=== PATIENT | male | born 1965 | race Caucasian/White ===

== ENCOUNTER 2017-04-30 17:36 | Observation (INO) | payer BC ==
[2017-04-30] MEDS ORDERED: Sodium Chloride 0.9% 2.5 ML Syringe FLUSH PRN (17:48)
[2017-04-30] MEDS ORDERED: Ketorolac 30 MG/ML SDV IVPUSH ONE (17:48)
[2017-04-30] MEDS ORDERED: Sodium Chloride 0.9% 10 ML Syringe FLUSH PRN (17:48)
--- NOTE | 2017-04-30 18:06 | EDM.PDOC ---
ED HPI GENERAL MEDICAL PROBLEM - General Chief Complaint: Upper Extremity Injury/Pain Stated Complaint: PAIN IN SHOULDER Time Seen by Provider: 04/30/17 18:00 Source of Information: Reports: Patient History Limitations: Reports: No Limitations - History of Present Illness INITIAL COMMENTS - FREE TEXT/NARRATIVE: History of present illness: [51-year-old male comes in complaining of left-sided shoulder pain status post carrying in groceries. Patient indicates he is [id number] and he has point tenderness and it is more tender with increased range of motion and felt he needed to be evaluated.] Review of systems: As per history of present illness and below otherwise all systems reviewed and negative. Past medical history: As per history of present illness and as reviewed below otherwise noncontributory. Surgical history: As per history of present illness and as reviewed below otherwise noncontributory. Social history: No reported history of drug or alcohol abuse. Family history: As per history of present illness and as reviewed below otherwise noncontributory. Physical exam: HEENT: Atraumatic, normocephalic, pupils reactive, negative for conjunctival pallor or scleral icterus, mucous membranes moist, throat clear, neck supple, nontender, trachea midline. Lungs: Clear to auscultation, breath sounds equal bilaterally, chest nontender. Heart: S1S2, regular, negative for clicks, rubs, or JVD. Abdomen: Soft, nondistended, nontender. Negative for masses or hepatosplenomegaly. Negative for costovertebral tenderness. Pelvis: Stable nontender. Genitourinary: Deferred. Rectal: Deferred. Extremities: Atraumatic, negative for cords or calf pain. Neurovascular unremarkable. Left shoulder noted to be tender on palpation with a tight sternocleidomastoid as well as the levator scapula Neuro: Awake, alert, oriented. Cranial nerves II through XII unremarkable. Cerebellum unremarkable. Motor and sensory unremarkable throughout. Exam nonfocal. Diagnostics: [CBC, CMP, troponin, amylase, lipase, EKG, chest x-ray] Therapeutics: [IV ] Impression: [#1 musculoskeletal pain] Plan: [[id number] pain medicine follow-up with PCP] Definitive disposition and diagnosis as appropriate pending reevaluation and review of above. left shoulder Pain Score (Numeric/FACES): 5 - Related Data Allergies Allergy/AdvReac Type Severity Reaction Status Date / Time Penicillins Allergy Hives Verified 04/30/17 17:45 Home Meds: Home Meds Aspirin [Low Dose Aspirin EC] 81 mg PO DAILY 01/26/14 [History] Past Medical History - Past Health History Medical/Surgical History: Denies Medical/Surgical History HEENT History: Reports: None Cardiovascular History: Reports: None Respiratory History: Reports: None Gastrointestinal History: Reports: None Genitourinary History: Reports: None Musculoskeletal History: Reports: None Neurological History: Reports: None Psychiatric History: Reports: None Endocrine/Metabolic History: Reports: None Hematologic History: Reports: None Immunologic History: Reports: None Oncologic (Cancer) History: Reports: None Dermatologic History: Reports: None - Infectious Disease History Infectious Disease History: Reports: None - Past Surgical History Head Surgeries/Procedures: Reports: None Social & Family History - Family History Family Medical History: Noncontributory - Tobacco Use Smoking Status *Q: Never Smoker Second Hand Smoke Exposure: No - Caffeine Use Caffeine Use: Reports: Soda - Alcohol Use Days Per Week of Alcohol Use: 0 - Recreational Drug Use Recreational Drug Use: No Review of Systems - Review of Systems Review Of Systems: See Below (See history of present illness) ED EXAM, GENERAL - Physical Exam Exam: See Below (See history of present illness) Course - Vital Signs Last Recorded V/S: Last Vital Signs Temp 36.6 C 04/30/17 17:46 Pulse 96 04/30/17 17:46 Resp 18 04/30/17 17:46 BP 162/75 H 04/30/17 17:46 Pulse Ox 98 04/30/17 17:46 - Orders/Labs/Meds Orders: Active Orders 24 hr Category Date Time Status Cardiac Monitoring [RC] . DIRECTED Care 04/30/17 18:28 Active EKG Documentation Completion [RC] STAT Care 04/30/17 17:48 Active Chest 1V Frontal [CR] Stat Exams 04/30/17 17:48 Taken Sodium Chloride 0.9% [Saline Flush] Med 04/30/17 17:48 Active 10 ml FLUSH ASDIRECTED PRN Sodium Chloride 0.9% [Saline Flush] Med 04/30/17 17:48 Active 2.5 ml FLUSH ASDIRECTED PRN Saline Lock Insert [OM.PC] Stat Oth 04/30/17 17:48 Ordered Medication Orders Sodium Chloride (Saline Flush) 10 ml FLUSH ASDIRECTED PRN PRN Reason: Keep Vein Open Sodium Chloride (Saline Flush) 2.5 ml FLUSH ASDIRECTED PRN PRN Reason: Keep Vein Open Labs: Laboratory Tests 04/30/17 04/30/17 Range/Units 17:56 17:56 WBC 7.08 (4.0-11.0) K/uL RBC 5.25 (4.50-5.90) M/uL Hgb 15.4 (13.0-17.0) g/dL Hct 45.4 (38.0-50.0) % MCV 86.5 (80.0-98.0) fL MCH 29.3 (27.0-32.0) pg MCHC 33.9 (31.0-37.0) g/dL RDW Std Deviation 40.9 (28.0-62.0) fl RDW Coeff of Fidencio 13 (11.0-15.0) % Plt Count 242 (150-400) K/uL MPV 11.10 (7.40-12.00) fL Neut % (Auto) 71.4 (48.0-80.0) % Lymph % (Auto) 18.1 (16.0-40.0) % [place] % (Auto) 7.6 (0.0-15.0) % Eos % (Auto) 2.3 (0.0-7.0) % Baso % (Auto) 0.6 (0.0-1.5) % Neut # (Auto) 5.1 (1.4-5.7) K/uL Lymph # (Auto) 1.3 (0.6-2.4) K/uL [place] # (Auto) 0.5 (0.0-0.8) K/uL Eos # (Auto) 0.2 (0.0-0.7) K/uL Baso # (Auto) 0.0 (0.0-0.1) K/uL Nucleated RBC % 0.0 /100WBC Nucleated RBCs # 0 K/uL Sodium 139 (136-146) mmol/L Potassium 4.4 (3.5-5.1) mmol/L Chloride 106 (98-110) mmol/L Carbon Dioxide 23 (21-31) mmol/L BUN 13 (6.0-23.0) mg/dL Creatinine 0.9 (0.6-1.5) mg/dL Est Cr Clr Drug Dosing 109.74 mL/min Estimated GFR (MDRD) > 60.0 ml/min Glucose 146 H (60-110) mg/dL Calcium 9.2 (8.8-10.8) mg/dL Total Bilirubin 0.3 (0.1-1.5) mg/dL AST 21 (5-40) IU/L ALT 29 (8-54) IU/L Alkaline Phosphatase 87 (40-150) Troponin I < 0.10 (0.0-0.29) NG/ML Total Protein 7.6 (6.0-8.0) g/dL Albumin 3.8 (3.5-5.0) g/dL Globulin 3.8 H (2.0-3.5) g/dL Albumin/Globulin Ratio 1.0 L (1.3-2.8) Amylase 51 (10-90) U/L Lipase 20 (7-80) U/L Meds: Medications Generic Name Dose Route Start Last Admin Trade Name Freq PRN Reason Stop Dose Admin Sodium Chloride 10 ml 04/30/17 17:48 Saline Flush FLUSH ASDIRECTED PRN Keep Vein Open Sodium Chloride 2.5 ml 04/30/17 17:48 Saline Flush FLUSH ASDIRECTED PRN Keep Vein Open Discontinued Medications Generic Name Dose Route Start Last Admin Trade Name Freq PRN Reason Stop Dose Admin Ketorolac Tromethamine 30 mg 04/30/17 17:48 Toradol IVPUSH 04/30/17 17:49 ONETIME ONE Departure - Departure Time of Disposition: 18:56 Disposition: Home, Self-Care 01 Condition: Good Clinical Impression: Muscle ache - Discharge Information Referrals: PCP,None [Primary Care Provider] - Forms: ED Department Discharge Additional Instructions: The following information is given to patients seen in the emergency department who are being discharged to home. This information is to outline your options for follow-up care. We provide all patients seen in our emergency department with a follow-up referral. The need for follow-up, as well as the timing and circumstances, are variable depending upon the specifics of your emergency department visit. If you don't have a primary care physician on staff, we will provide you with a referral. We always advise you to contact your personal physician following an emergency department visit to inform them of the circumstance of the visit and for follow-up with them and/or the need for any referrals to a consulting specialist. The emergency department will also refer you to a specialist when appropriate. This referral assures that you have the opportunity for follow-up care with a specialist. All of these measure are taken in an effort to provide you with optimal care, which includes your follow-up. Under all circumstances we always encourage you to contact your private physician who remains a resource for coordinating your care. When calling for follow-up care, please make the office aware that this follow-up is from your recent emergency room visit. If for any reason you are refused follow-up, please contact the [facility] Emergency Department at and asked to speak to the emergency department charge nurse. Follow-up with Primary care 1-2 days If your muscle pain returns you may use [id number] pain medication such as ibuprofen or Tylenol and you may alternate ice and heat Return to ED as needed as discussed - My Orders Last 24 Hours: My Active Orders 04/30/17 17:48 EKG Documentation Completion [RC] STAT Chest 1V Frontal [CR] Stat Sodium Chloride 0.9% [Saline Flush] 10 ml FLUSH ASDIRECTED PRN Sodium Chloride 0.9% [Saline Flush] 2.5 ml FLUSH ASDIRECTED PRN Saline Lock Insert [OM.PC] Stat 04/30/17 18:28 Cardiac Monitoring [RC] . DIRECTED - Assessment/Plan Last 24 Hours: My Active Orders 04/30/17 17:48 EKG Documentation Completion [RC] STAT Chest 1V Frontal [CR] Stat Sodium Chloride 0.9% [Saline Flush] 10 ml FLUSH ASDIRECTED PRN Sodium Chloride 0.9% [Saline Flush] 2.5 ml FLUSH ASDIRECTED PRN Saline Lock Insert [OM.PC] Stat 04/30/17 18:28 Cardiac Monitoring [RC] . DIRECTED
[2017-04-30 18:26] LABS: CHLORIDE,CL 106 mmol/L (98-110); SODIUM,NA 139 mmol/L (136-146)
[2017-04-30] MEDS ORDERED: Aspirin 81 MG Tab.Chew PO ONE (20:39)
--- NOTE | 2017-04-30 20:54 | PCM.HP ---
H&P History of Present Illness - General Admit Problem/Dx: Admission Diagnosis/Problem Admission Diagnosis/Problem Chest pain - History of Present Illness Initial Comments - Free Text/Narative: 51 yo male who presents to the ED with six hour history of shoulder pain. Patient reports pain medial to the left scapula that radiates to the clavical area. He denies any shortness of breath, or cough. Moving his shoulder does not reproduce the pain. The pain resolved in the ED prior to receiving any medications. left shoulder Pain Score (Numeric/FACES): 0 - Related Data Allergies/Adverse Reactions: Allergies Allergy/AdvReac Type Severity Reaction Status Date / Time Penicillins Allergy Hives Verified 04/30/17 17:45 Home Medications: Home Meds Aspirin [Low Dose Aspirin EC] 81 mg PO DAILY 01/26/14 [History] Cetirizine [ZyrTEC] 10 mg PO DAILY 04/30/17 [History] Omeprazole 1 cap PO DAILY 04/30/17 [History] Past Medical History - Past Health History Medical/Surgical History: Denies Medical/Surgical History HEENT History: Reports: None Cardiovascular History: Reports: None Respiratory History: Reports: None Gastrointestinal History: Reports: None Genitourinary History: Reports: None Musculoskeletal History: Reports: None Neurological History: Reports: None Psychiatric History: Reports: None Endocrine/Metabolic History: Reports: None Hematologic History: Reports: None Immunologic History: Reports: None Oncologic (Cancer) History: Reports: None Dermatologic History: Reports: None - Infectious Disease History Infectious Disease History: Reports: None - Past Surgical History Head Surgeries/Procedures: Reports: None Respiratory Surgical History: Reports: None GI Surgical History: Reports: None Male Surgical History: Reports: None Endocrine Surgical History: Reports: None Social & Family History - Family History Family Medical History: Noncontributory HEENT: Reports: None Cardiac: Reports: Afib Respiratory: Reports: None GI: Reports: None : Reports: None OBGYN: Reports: None Musculoskeletal: Reports: None Neurological: Reports: None Psychiatric: Reports: None Endocrine/Metabolic: Reports: None Hematologic: Reports: None Immunologic: Reports: None Dermatologic: Reports: None Oncologic: Reports: Uterine - Tobacco Use Smoking Status *Q: Never Smoker Second Hand Smoke Exposure: No - Caffeine Use Caffeine Use: Reports: Coffee - Alcohol Use Days Per Week of Alcohol Use: 0 - Recreational Drug Use Recreational Drug Use: No H&P Review of Systems - Review of Systems: Review Of Systems: ROS reveals no pertinent complaints other than HPI. Exam - Exam Exam: See Below - Vital Signs Vital Signs: Last Vital Signs Temp 36.7 C 04/30/17 19:36 Pulse 93 04/30/17 19:36 Resp 20 04/30/17 19:36 BP 140/82 04/30/17 19:36 Pulse Ox 98 04/30/17 19:36 Weight: 139.2 kg - Exam General: Alert, Oriented HEENT: Mucosa Moist & [place] Neck: Supple Lungs: Clear to Auscultation, Normal Respiratory Effort Cardiovascular: Regular Rate, Regular Rhythm GI/Abdominal Exam: Soft, Non-Tender, No Distention Extremities: Normal Range of Motion (of shoulders) Skin: Warm, Dry, Intact - Patient Data Result Diagrams: 04/30/17 17:56 04/30/17 17:56 Imaging Impressions Last 24 hrs: CXR: no acute cardiopulmonary process EKG Normal sinus rhythm, rate 92, no st segment elevations or depressions, no T- wave changes *Q Meaningful Use (ADM) - VTE *Q VTE Criteria *Q: - Stroke *Q Stroke Criteria *Q: - AMI *Q AMI Criteria *Q: Problem List Initiated/Reviewed/Updated: Yes Orders Last 24hrs: Active Orders 24 hr Category Date Time Status Antiembolic Devices [RC] PER UNIT ROUTINE Care 04/30/17 20:48 Ordered Intake and Output [RC] QSHIFT Care 04/30/17 20:47 Ordered Oxygen Therapy [RC] PRN Care 04/30/17 20:47 Ordered Up ad Katelyn [RC] ASDIRECTED Care 04/30/17 20:47 Ordered VTE/DVT Education [RC] PER UNIT ROUTINE Care 04/30/17 20:47 Ordered Vital Signs [RC] Q4H Care 04/30/17 20:47 Ordered Heart Healthy Diet [DIET] Diet 05/01/17 Breakfast Active GLYCOSYLATED HEMOGLOBIN,HGBA1C [CHEM] AM Lab 05/01/17 05:11 Ordered LIPID PANEL [CHEM] AM Lab 05/01/17 05:11 Ordered TROPONIN I [CHEM] Q6H Lab 05/01/17 00:00 Ordered TROPONIN I [CHEM] Q6H Lab 05/01/17 06:00 Ordered Sequential Compression Device [OM.PC] Per Unit Routine Oth 04/30/17 20:47 Ordered Resuscitation Status Routine Resus Stat 04/30/17 20:47 Ordered Medication Orders Sodium Chloride (Saline Flush) 10 ml FLUSH ASDIRECTED PRN PRN Reason: Keep Vein Open Sodium Chloride (Saline Flush) 2.5 ml FLUSH ASDIRECTED PRN PRN Reason: Keep Vein Open Assessment/Plan Comment:: 51 yo male who presented with shoulder pain. We will observe for acute coronary syndrome rule out. We will trend cardiac enzymes and monitor on telemetry.
[2017-04-30] MEDS ORDERED: Morphine 2 MG/ML Syringe SUBCUT PRN (21:53)
[2017-04-30] MEDS: Morphine 2 MG/ML Syringe IVPUSH PRN (22:28)
[2017-05-01] MEDS: Morphine 2 MG/ML Syringe IVPUSH PRN (01:40)
--- NOTE | 2017-05-01 12:12 | PCM.DCSUM1 ---
Discharge Summary - Hospital Course Free Text/Narrative:: Admission date: April 30, 2017 Discharge date: May 01, 2017 Admission diagnosis: Chest pain Discharge diagnosis: Myalgias Hospital course: This is a 51-year-old male with no significant cardiovascular history that presented to the emergency department on April 30, 2017 with a chief complaint of left shoulder pain. After workup in the ER, this patient has been admitted for observation for ACS rule out. After looking at the labs, patient had negative troponins 3. Did not have a reoccurrence of his pain. All of his labs that were done including a CBC and BMP were also unremarkable. A chest x-ray and EKG were also unremarkable. The time of discharge, the next morning, this patient tells me that his pain is completely subsided. He denied having any complaints. Discharge instructions: Patient is advised to follow-up with a new primary care provider, Dr. Guevara within one week. He is also to be scheduled for an outpatient nuclear exercise stress test. He is also advised to return to seek further medical attention if he expenses any return of symptoms including chest pain, syncope, fevers or chills. He was advised that if his pain were to recur, I given the [place] skeletal nature of it, that he can try things like ibuprofen and Tylenol. - Discharge Data Discharge Date: 05/01/17 Discharge Disposition: Home, Self-Care 01 Condition: Fair - Discharge Diagnosis/Problem(s) (1) Muscle ache SNOMED Code(s): 14241686 ICD Code: M79.1 - MYALGIA Status: Acute Current Visit: Yes - Patient Instructions Diet: Regular Diet as Tolerated Activity: As Tolerated Driving: May Drive Today Showering/Bathing: May Shower Notify Provider of: Fever, Increased Pain, Nausea and/or Vomiting Other/Special Instructions: chest pain - Discharge Plan Home Medications: Home Meds Aspirin [Low Dose Aspirin EC] 81 mg PO DAILY 01/26/14 [History] Cetirizine [ZyrTEC] 10 mg PO DAILY 04/30/17 [History] Omeprazole 1 cap PO DAILY 04/30/17 [History] Patient Handouts: Nonspecific Chest Pain, [id number] Referrals: [facility] [Outside] Cosme Guevara MD [Resident] - 05/10/17 2:45 pm - Discharge Summary/Plan Comment DC Time >30 min.: No Discharge Summary/Plan Comment: Admission date: April 30, 2017 Discharge date: May 01, 2017 Admission diagnosis: Chest pain Discharge diagnosis: Myalgias Hospital course: This is a 51-year-old male with no significant cardiovascular history that presented to the emergency department on April 30, 2017 with a chief complaint of left shoulder pain. After workup in the ER, this patient has been admitted for observation for ACS rule out. After looking at the labs, patient had negative troponins 3. Did not have a reoccurrence of his pain. All of his labs that were done including a CBC and BMP were also unremarkable. A chest x-ray and EKG were also unremarkable. The time of discharge, the next morning, this patient tells me that his pain is completely subsided. He denied having any complaints. Discharge instructions: Patient is advised to follow-up with a new primary care provider, Dr. Guevara within one week. He is also to be scheduled for an outpatient nuclear exercise stress test. He is also advised to return to seek further medical attention if he expenses any return of symptoms including chest pain, syncope, fevers or chills. He was advised that if his pain were to recur, I given the [place] skeletal nature of it, that he can try things like ibuprofen and Tylenol. - Patient Data Vitals - Most Recent: Last Vital Signs Temp 37.0 C 05/01/17 08:00 Pulse 103 H 05/01/17 08:00 Resp 16 05/01/17 08:00 BP 125/80 05/01/17 08:00 Pulse Ox 95 05/01/17 08:00 Weight - Most Recent: 139.2 kg I&O - Last 24 hours: Intake & Output 04/30/17 05/01/17 05/01/17 22:59 06:59 14:59 Intake Total 400 Output Total 1050 Balance -650 Lab Results - Last 24 hrs: Laboratory Results - last 24 hr 05/01/17 05/01/17 05/01/17 Range/Units 00:20 06:05 06:05 Hemoglobin A1c (0.0-6.0) % Troponin I < 0.10 < 0.10 (0.0-0.29) NG/ML Triglycerides 57 (10-190) mg/dL Cholesterol 72 L (131-240) mg/dL LDL Cholesterol, Calc 33 L (60-180) mg/dL VLDL Cholesterol 11 (5-55) mg/dL HDL Cholesterol 28 L (40-80) mg/dL Cholesterol/HDL Ratio 2.6 L (3.3-6.0) 05/01/17 Range/Units 06:05 Hemoglobin A1c 5.8 (0.0-6.0) % Troponin I (0.0-0.29) NG/ML Triglycerides (10-190) mg/dL Cholesterol (131-240) mg/dL LDL Cholesterol, Calc (60-180) mg/dL VLDL Cholesterol (5-55) mg/dL HDL Cholesterol (40-80) mg/dL Cholesterol/HDL Ratio (3.3-6.0) Med Orders - Current: Current Medications Morphine Sulfate (Morphine) 2 mg IVPUSH Q3H PRN PRN Reason: Pain Last Admin: 05/01/17 01:40 Dose: 2 mg Sodium Chloride (Saline Flush) 10 ml FLUSH ASDIRECTED PRN PRN Reason: Keep Vein Open Sodium Chloride (Saline Flush) 2.5 ml FLUSH ASDIRECTED PRN PRN Reason: Keep Vein Open Discontinued Medications Aspirin (Aspirin) 324 mg PO ONETIME ONE Stop: 04/30/17 20:40 Last Admin: 04/30/17 21:30 Dose: 324 mg Ketorolac Tromethamine (Toradol) 30 mg IVPUSH ONETIME ONE Stop: 04/30/17 17:49 Last Admin: 04/30/17 19:15 Dose: Not Given Morphine Sulfate (Morphine) 2 mg SUBCUT Q3H PRN PRN Reason: Pain *Q Meaningful Use (DIS) - VTE *Q VTE Criteria *Q: - Stroke *Q Stroke Criteria *Q: - AMI *Q AMI Criteria *Q:
--- NOTE | 2017-05-01 17:54 | CR ---
EXAM DATE: 04/30/17 PATIENT'S AGE: 51 Patient: DONI RODARTE Facility: [place], [place] Site . Site : [id number] Study: XRay Chest [id number]/22/2017 6:19:42 PM Ordering Physician: Doctor Del Rosario Final Report: INDICATION: Chest pain TECHNIQUE: Chest radiograph 1 view COMPARISON: None FINDINGS: Cardiovascular and mediastinum: The cardiac silhouette is normal in appearance and size. Mediastinum is within normal limits. Lungs and pleural spaces: Both lungs are unremarkable in appearance. No sign of pleural effusion. No pneumothorax is seen. Bones and soft tissues: No significant findings. IMPRESSION: 1. No acute cardiopulmonary disease seen. Dictated by: Jeremy Martinez MD @ 04/30/2017 18:48:11 (Electronic Signature) Report Signed by Proxy. [facility] HOSPITALCharlie
== END 2017-05-01 11:43 | disposition home or self-care (01) ==
LOC: MW.ED 17:36 → MW.MS 19:19
PROVIDERS: ADMIT Internal Medicine; ATTEND Internal Medicine
DX: M79.1 Myalgia (principal); Z79.82 Long term (current) use of aspirin; Z79.899 Other long term (current) drug therapy; Z88.0 Allergy status to penicillin
CPT/HCPCS: 36415; 71010; 80053; 80061; 81001; 82150; 83036; 83690; 84484; 85025; 93005; 96374; 96376; 99285; A9270; G0378; J2270; 99283

== ENCOUNTER 2021-05-21 07:22 | Day surgery (SDC) | payer BC ==
--- NOTE | 2021-05-21 07:47 | PCM.PREANE ---
Preanesthetic Assessment - Anesthesia/Transfusion/Family Hx Anesthesia History: Prior Anesthesia Without Reaction Transfusion History: No Prior Transfusion(s) - Review of Systems General: No Symptoms Pulmonary: No Symptoms Cardiovascular: Other (Hypertension) Gastrointestinal: No Symptoms Neurological: No Symptoms Other: Reports: None - Physical Assessment NPO Status Date: 05/21/21 NPO Status Time: 00:00 Vital Signs: Last Vital Signs Temp 97.9 F 05/21/21 07:33 Pulse 86 05/21/21 07:33 Resp 16 05/21/21 07:33 BP 143/74 H 05/21/21 07:33 Pulse Ox 96 05/21/21 07:33 Height: 6 ft 1 in Weight: 301 lb ASA Class: 3 Mental Status: Alert & Oriented x3 Airway Class: Mallampati = 2 Dentition: Reports: Normal Dentition ROM/Head Extension: Full Lungs: Clear to Auscultation, Normal Respiratory Effort Cardiovascular: Regular Rate, Regular Rhythm - Allergies Allergies/Adverse Reactions: Allergies Allergy/AdvReac Type Severity Reaction Status Date / Time Penicillins Allergy Hives Verified 05/17/21 13:33 sulfamethoxazole Allergy Hives Verified 05/17/21 13:33 [From Bactrim] trimethoprim [From Bactrim] Allergy Hives Verified 05/17/21 13:33 - Acknowledgements Anesthesia Type Planned: General Anesthesia Pt an Appropriate Candidate for the Planned Anesthesia: Yes Alternatives and Risks of Anesthesia Discussed w Pt/Guardian: Yes Pt/Guardian Understands and Agrees with Anesthesia Plan: Yes PreAnesthesia Questionnaire - Past Health History Medical/Surgical History: Denies Medical/Surgical History HEENT History: Reports: Allergic Rhinitis, Other (See Below) Other HEENT History: wears glasses, contacts Cardiovascular History: Reports: Hypertension Respiratory History: Reports: Asthma Other Respiratory History: uses daily inhaler Gastrointestinal History: Reports: GERD Genitourinary History: Reports: Other (See Below) Other Genitourinary History: recently dx with Chronic Kidney Disease because of protein in his urine Musculoskeletal History: Reports: Fracture Other Musculoskeletal History: hx of fx ankle Neurological History: Reports: None Psychiatric History: Reports: None Endocrine/Metabolic History: Reports: Obesity/BMI 30+ Hematologic History: Reports: None Immunologic History: Reports: None Oncologic (Cancer) History: Reports: None Dermatologic History: Other Dermatologic History: ketatosis on elbows - Infectious Disease History Infectious Disease History: Reports: None - Past Surgical History Head Surgeries/Procedures: Reports: None HEENT Surgical History: Reports: Naso-Sinus Surgery Cardiovascular Surgical History: Reports: None Respiratory Surgical History: Reports: None GI Surgical History: Reports: None Male Surgical History: Reports: None Endocrine Surgical History: Reports: None Musculoskeletal Surgical History: Reports: None Dermatological Surgical History: Reports: None - SUBSTANCE USE Tobacco Use Status *Q: Never Tobacco User Recreational Drug Use History: No - HOME MEDS Home Medications: Home Meds Cetirizine [ZyrTEC] 10 mg PO DAILY 04/30/17 [History] Omeprazole 40 mg PO ACDINNER 04/30/17 [History] Budesonide/Formoterol Fumarate [Symbicort 80-4.5 MCG] 2 puff INH BID 05/17/21 [History] Fluticasone Propionate [Flonase Allergy Relief] 1 - 2 spray NASBOTH DAILY 05/17/21 [History] Losartan Potassium 100 mg PO QPM 05/17/21 [History] Metoprolol Succinate 25 mg PO QPM 05/17/21 [History] - CURRENT (IN HOUSE) MEDS Current Meds: Current Medications Lactated Ringer's (Ringers, Lactated) 1,000 mls @ 125 mls/hr IV ASDIRECTED [facility]
[2021-05-21] MEDS ORDERED: fentaNYL 100 MCG/2 ML SDV ONE (07:54)
[2021-05-21] MEDS ORDERED: Propofol 200 MG/20 ML SDV ONE ×2 (08:12)
--- NOTE | 2021-05-21 09:04 | PCM.OPNOTE ---
- General Post-Op/Procedure Note Date of Surgery/Procedure: 05/21/21 Operative Procedure(s): Colonoscopy Findings: normal colonoscopy dictation number [id number] Pre Op Diagnosis: Screening colonoscopy Post-Op Diagnosis: normal colonoscopy Anesthesia Technique: VINH Primary Surgeon: Rupesh Nugent Pathology: none Complications: None Condition: Good
--- NOTE | 2021-05-21 09:08 | PCM.POSTAN ---
POST ANESTHESIA ASSESSMENT - MENTAL STATUS Mental Status: Alert, Oriented - VITAL SIGNS Vital Signs: Last Vital Signs Temp 36.6 C 05/21/21 07:33 Pulse 86 05/21/21 07:33 Resp 16 05/21/21 07:33 BP 143/74 H 05/21/21 07:33 Pulse Ox 96 05/21/21 07:33 - RESPIRATORY Respiratory Status: Respiratory Rate WNL, Airway Patent, O2 Saturation Stable - CARDIOVASCULAR CV Status: Pulse Rate WNL, Blood Pressure Stable - GASTROINTESTINAL GI Status: No Symptoms - POST OP HYDRATION Hydration Status: Adequate & Stable
--- NOTE | 2021-05-21 09:13 | PCM48HPAN ---
Post Anesthesia Note - EVALUATION WITHIN 48HRS OF ANESTHETIC Vital Signs in Normal Range: Yes Patient Participated in Evaluation: Yes Respiratory Function Stable: Yes Airway Patent: Yes Cardiovascular Function Stable: Yes Hydration Status Stable: Yes Pain Control Satisfactory: Yes Nausea and Vomiting Control Satisfactory: Yes Mental Status Recovered: Yes Vital Signs: Last Vital Signs Temp 36.6 C 05/21/21 09:00 Pulse 78 05/21/21 09:10 Resp 14 05/21/21 09:10 BP 103/50 L 05/21/21 09:10 Pulse Ox 96 05/21/21 09:10
[2021-05-21] MEDS ORDERED: Lactated Ringers 1,000 ML IV SCH (09:15)
--- NOTE | 2021-05-21 09:41 | OR ---
SURGEON: REJI RUFFIN MD DATE OF PROCEDURE: 05/21/2021 PREOPERATIVE DIAGNOSIS: Screening colonoscopy. POSTOPERATIVE DIAGNOSIS: Normal colonoscopy. PROCEDURE PERFORMED: Colonoscopy. PRIMARY SURGEON: Reji Ruffin MD. BOWEL PREP: Excellent LIMITATIONS: None. EXTENT OF COLONOSCOPY: To the cecum. REASON FOR PROCEDURE: Patient is a pleasant 55-year-old gentleman. This will be his first colonoscopy. Denies any blood in the stool. Denies any family history of colon cancer. PROCEDURE IN DETAIL: Physical examination was performed. Major risks and benefits associated with the procedure were explained to the patient in detail. Patient verbalized understanding and agreement of the same. Patient was then connected to the appropriate monitoring devices and IV was started. EKG, pulse, pulse oximetry, blood pressure, and capnography were monitored throughout the entire procedure. Continuous oxygen and sedation were provided by the anesthesiologist. Patient was placed in left lateral decubitus position. Sedation was began. After adequate sedation was achieved, a digital rectum exam was performed. No rectal masses or polyps were felt. Now, a well-lubricated Olympus colonoscope was inserted into the rectum and advanced under direct visualization to the level of the cecum. Cecum was identified with both visual and anatomic landmarks. Photograph was taken of the cecal cap. Terminal ileum was also intubated. Scope was then slowly withdrawn in a somewhat circular fashion looking at the color, texture, anatomy, and integrity of the mucosa from the cecum to the anal canal. Patient had some minimal light liquid stool, which was suctioned and irrigated out for a great look at the mucosa. No polyps or lesions were seen. Scope was retroflexed in the rectum. Scope was then completely removed and procedure was terminated. ENDOSCOPIC DIAGNOSIS: Normal colonoscopy. RECOMMENDATIONS: Followup colonoscopy in 10 years. He will need one sooner if develops signs or symptoms such as change in bowel habits or blood in the stool. WIL / SENA /[id number]
== END 2021-05-21 09:27 | disposition home or self-care (01) ==
LOC: MW.SDS 07:22
PROVIDERS: ATTEND Surgery
DX: Z12.11 Encounter for screening for malignant neoplasm of colon (principal); J45.909 Unspecified asthma, uncomplicated; I10 Essential (primary) hypertension; K21.9 Gastro-esophageal reflux disease without esophagitis; E03.9 Hypothyroidism, unspecified; E66.9 Obesity, unspecified; Z88.1 Allergy status to other antibiotic agents; Z88.0 Allergy status to penicillin; Z79.899 Other long term (current) drug therapy; Z98.890 Other specified postprocedural states; Z68.39 Body mass index [BMI] 39.0-39.9, adult
CPT/HCPCS: 45378; J2704; J3010; 00812